=== PATIENT | male | born 1970 | race Asian ===

== ENCOUNTER 2017-08-17 11:10 | Outpatient (CLI) | payer BC ==
[~2017-08-17 11:10] MED LIST: CIPRO500 MG OR; CLINDAMYCIN300 MG OR
[2017-08-17 11:31] LABS: PLATELET COUNT 330 K/uL (142-355)
[2017-08-17 11:38] LABS: POTASSIUM 3.8 mmol/L (3.6-5.2)
== END 2017-08-17 12:40 | disposition home or self-care (01) ==
LOC: LABW 11:10
PROVIDERS: Nurse Practitioner Family
DX: R10.84 Generalized abdominal pain (principal); R11.2 Nausea with vomiting, unspecified
CPT/HCPCS: 36415; 80053; 82150; 83690; 85027; 86318

== ENCOUNTER 2018-02-19 10:40 | Outpatient (CLI) | payer BC | END 2018-02-19 22:01 | disposition home or self-care (01) | LOC: US 10:40 | DX: R22.2 Localized swelling, mass and lump, trunk (principal); R19.06 Epigastric swelling, mass or lump; I25.10 Atherosclerotic heart disease of native coronary artery without angina pectoris ==

== ENCOUNTER 2018-04-20 07:00 | Outpatient (CLI) | payer BC | END 2018-04-20 19:02 | disposition home or self-care (01) | LOC: LAB 07:00 | DX: N42.9 Disorder of prostate, unspecified (principal) | CPT/HCPCS: 36415; 84154 ==

== ENCOUNTER 2018-05-23 05:09 | Outpatient (CLI) | payer BC | END 2018-05-23 19:46 | disposition home or self-care (01) | LOC: LABW 05:09 | DX: E29.1 Testicular hypofunction (principal); N42.9 Disorder of prostate, unspecified | CPT/HCPCS: 36415; 84154; 84402; 84403 ==

== ENCOUNTER 2023-02-02 16:04 | Outpatient (CLI) | payer BC | END 2023-02-02 19:26 | disposition home or self-care (01) | LOC: RAD 16:04 | PROVIDERS: ATTEND Internal Medicine | DX: M79.644 Pain in right finger(s) (principal) ==